=== PATIENT | male | born 1960 | race Caucasian/White ===

== ENCOUNTER 2017-08-09 13:07 | Observation (INO) | payer BC ==
[2017-08-09] MEDS ORDERED: ASPIRIN 81 MG TABLET, CHEWABLE PO ONE (13:57)
--- NOTE | 2017-08-09 13:57 | ER Document Report ---
ED Medical Screen (RME) - General Chief Complaint: Chest Pain Stated Complaint: CHEST PAIN Time Seen by Provider: 08/09/17 13:51 TRAVEL OUTSIDE OF THE [place] IN LAST 30 DAYS: No - HPI Notes: 08/09/17 13:57 Burning intermittent chest pain ongoing for an hour and a half prior to arrival - Related Data Allergies/Adverse Reactions: No Known Allergies Allergy (Verified 08/09/17 13:08) Review of Systems - Review of Systems Cardiovascular: Chest pain Physical Exam - Vital signs Vitals: Temp Pulse Resp BP Pulse Ox 98.9 F 79 20 144/74 H 97 08/09/17 13:16 08/09/17 13:16 08/09/17 13:16 08/09/17 13:16 08/09/17 13:16 - Respiratory Respiratory status: No respiratory distress Chest status: Nontender Breath sounds: Normal Chest palpation: Normal Course - Vital Signs Vital signs: Temp Pulse Resp BP Pulse Ox 98.9 F 79 20 144/74 H 97 08/09/17 13:16 08/09/17 13:16 08/09/17 13:16 08/09/17 13:16 08/09/17 13:16
[2017-08-09] MEDS ORDERED: LIDOCAINE 2% VISCOUS SOLN 20 ML UDCUP PO ONE (13:58)
[2017-08-09] MEDS ORDERED: METOCLOPRAMIDE HCL ORAL SOLN 10 MG/10 ML UDCUP PO ONE (13:58)
[2017-08-09] MEDS ORDERED: MAG HYDROX/AL HYDROX/SIMETH SUSP 30 ML UDCUP PO ONE (13:58)
--- NOTE | 2017-08-09 14:37 | RADIOLOGY REPORT (SQ) ---
EXAM DESCRIPTION: CHEST 2 VIEWS COMPLETED DATE/TIME: 08/09/2017 2:19 pm REASON FOR STUDY: cp COMPARISON: None. EXAM PARAMETERS: NUMBER OF VIEWS: two views TECHNIQUE: Digital Frontal and Lateral radiographic views of the chest acquired. RADIATION DOSE: NA LIMITATIONS: none FINDINGS: LUNGS AND PLEURA: No opacities, masses or pneumothorax. No pleural effusion. MEDIASTINUM AND HILAR STRUCTURES: No masses or contour abnormalities. HEART AND VASCULAR STRUCTURES: Heart normal size. No evidence for failure. BONES: No acute findings. HARDWARE: None in the chest. OTHER: No other significant finding. IMPRESSION: NO ACUTE RADIOGRAPHIC FINDING IN THE CHEST. TECHNICAL DOCUMENTATION: JOB ID: [id number] [employer]- All Rights Reserved Reading location - IP/workstation name: [email or web address]
[2017-08-09 14:41] LABS: ABSOLUTE EOSINOPHILS # (AUTO) 0.2 10^3/uL (0.0-0.6); ABSOLUTE LYMPHOCYTES (AUTO) 2.4 10^3/uL (0.5-4.7); ABSOLUTE MONOCYTES (AUTO) 0.5 10^3/uL (0.1-1.4); ABSOLUTE NEUT (AUTO) 4.6 10^3/uL (1.7-8.2); BASOPHILS % (AUTO) 0.5 % (0-2); HEMATOCRIT 41.7 % (37.9-51.0); HEMOGLOBIN 14.9 g/dL (13.5-17.0); MEAN CORPUSCULAR HEMOGLOBIN 33.5 pg (27.0-33.4); MEAN CORPUSCULAR HGB CONC 35.6 g/dL (32.0-36.0); MEAN CORPUSCULAR VOLUME 94 fl (80-97); MONOCYTES % (AUTO) 6.8 % (3-13); PLATELET COUNT 153 10^3/uL (150-450); RED BLOOD COUNT 4.44 10^6/uL (4.35-5.55); RED CELL DISTRIBUTION WIDTH 12.4 % (11.5-14.0); SEGMENTED NEUTROPHILS % (AUTO) 59.7 % (42-78); TOTAL CELLS COUNTED % (AUTO) 100 %; WHITE BLOOD COUNT 7.7 10^3/uL (4.0-10.5)
--- NOTE | 2017-08-09 14:50 | EKG REPORT ---
SEVERITY:- BORDERLINE ECG - SINUS RHYTHM BORDERLINE INFERIOR Q WAVES : Confirmed by: Milton Luna MD 09-Aug-2017 14:50:21
[2017-08-09 14:58] LABS: ALANINE AMINOTRANSFERASE 58 U/L (21-72); ALBUMIN 5.2 g/dL (3.5-5.0); ALKALINE PHOSPHATASE 57 U/L (38-126); ANION GAP 15 (5-19); ASPARTATE AMINO TRANSFERASE 52 U/L (17-59); BILIRUBIN,DIRECT 0.3 mg/dL (0.0-0.4); BILIRUBIN,TOTAL 0.7 mg/dL (0.2-1.3); BLOOD UREA NITROGEN 18 mg/dL (7-20); CALCIUM 10.7 mg/dL (8.4-10.2); CARBON DIOXIDE 28 mmol/L (22-30); CHLORIDE 98 mmol/L (98-107); CREATINE KINASE 65 U/L (55-170); GLUCOSE 176 mg/dL (75-110); POTASSIUM 4.6 mmol/L (3.6-5.0); SODIUM 141.4 mmol/L (137-145); TOTAL PROTEIN 7.9 g/dL (6.3-8.2)
[2017-08-09 15:10] LABS: CREATINE KINASE MB 1.24 ng/mL (<4.55)
[2017-08-09 15:13] LABS: TROPONIN I < 0.012 ng/mL
--- NOTE | 2017-08-09 15:41 | ER Document Report ---
ED Cardiac - General Chief Complaint: Chest Pain Stated Complaint: CHEST PAIN Time Seen by Provider: 08/09/17 13:51 Mode of Arrival: Ambulatory Information source: Patient TRAVEL OUTSIDE OF THE [place] IN LAST 30 DAYS: No - HPI Patient complains to provider of: Chest pain Use of: denies: Alcohol, Amphetamines, Bath salts, Caffeine, Cocaine, Decongestants Was the onset of pain: Sudden When did pain begin: 1130 TODAY Is the pain a: New problem Chest pain location: Substernal Quality of pain: Burning, Sharp Chest pain radiation location: None Severity now: None Severity at worst: Mild Chest pain precipitating factors: Mental Exertion/Stress Cardiac risk factors: Diabetes, Hypertension, Dyslipidemia. denies: Smoker, + Family history Positive cardiac history: No Associated symptoms: Shortness of breath, Weakness. denies: Diaphoresis Exacerbated by: Emotional stress Relieved by: Rest Similar symptoms previously: Yes - ONCE, NOT RECENT Recently seen / treated by doctor: No - Related Data Allergies/Adverse Reactions: No Known Allergies Allergy (Verified 08/09/17 13:08) Past Medical History - General Information source: Patient - Social History Smoking Status: Former Smoker - SMALL AMT., MANY YRS AGO Cigarette use (# per day): No Chew tobacco use (# tins/day): No Frequency of alcohol use: Social Drug Abuse: None Lives with: Spouse/Significant other Family History: denies: CAD Patient has suicidal ideation: No Patient has homicidal ideation: No - Past Medical History Cardiac Medical History: Reports: Hx Hypercholesterolemia, Hx Hypertension Renal/ Medical History: Reports: Hx Kidney Stones, Hx Peritoneal Dialysis Past Surgical History: Reports: Hx Urinary Tract Surgery - STONE RETRIEVAL Review of Systems - Review of Systems Constitutional: Weakness - VAGUE FEELING OF FATIGUE EENT: No symptoms reported Cardiovascular: See HPI Respiratory: Short of breath - MINIMAL Gastrointestinal: No symptoms reported. denies: Nausea Male Genitourinary: No symptoms reported Musculoskeletal: No symptoms reported Skin: No symptoms reported Neurological/Psychological: No symptoms reported Physical Exam - Vital signs Vitals: Temp Pulse Resp BP Pulse Ox 98.9 F 79 20 144/74 H 97 08/09/17 13:16 08/09/17 13:16 08/09/17 13:16 08/09/17 13:16 08/09/17 13:16 Course - Vital Signs Vital signs: Temp Pulse Resp BP Pulse Ox 98.9 F 79 20 144/74 H 97 08/09/17 13:16 08/09/17 13:16 08/09/17 13:16 08/09/17 13:16 08/09/17 13:16 - Laboratory Result Diagrams: 08/09/17 14:26 08/09/17 14:26 Laboratory results interpreted by me: 08/09/17 08/09/17 14:26 14:26 MCH 33.5 H Glucose 176 H Calcium 10.7 H Albumin 5.2 H - Diagnostic Test Radiology reviewed: Image reviewed, Reports reviewed - EKG Interpretation by Me EKG shows normal: Sinus rhythm, [place], Intervals, QRS Complexes. abnormal: ST-T Waves - INF. T ABNLS, NS Rate: Normal Rhythm: NSR - Consults [facility] Time consulted: 15:40 Consulted provider: will come to ER Discharge - Discharge Clinical Impression: Chest pain Qualifiers: Chest pain type: unspecified Qualified Code(s): R07.9 - Chest pain, unspecified Condition: Good Disposition: ADMITTED OBSERVATION Admitting Provider: Hospitalist Unit Admitted: Telemetry Referrals: JANUSZ SCHWARTZ PA-C [Primary Care Provider] - Follow up as needed
[2017-08-09] MEDS ORDERED: ONDANSETRON HCL INJ/PF 4 MG/2 ML SDV IV PRN (16:09)
[2017-08-09] MEDS ORDERED: DIAZEPAM 5 MG TABLET PO PRN (16:09)
[2017-08-09] MEDS ORDERED: MAG HYDROX/AL HYDROX/SIMETH SUSP 30 ML UDCUP PO PRN (16:09)
[2017-08-09] MEDS ORDERED: NITROGLYCERIN 0.4 MG/TAB 25 TAB/BOTTLE SL PRN (16:09)
[2017-08-09] MEDS ORDERED: ATORVASTATIN CALCIUM 20 MG TABLET PO SCH (16:15)
[2017-08-09] MEDS ORDERED: HYDRALAZINE HCL INJ/PF 20 MG/1 ML SDV IV PRN (16:22)
--- NOTE | 2017-08-09 16:25 | PDOC H&P ---
History of Present Illness Admission Date/PCP: 08/09/17 16:02 JANUSZ SCHWARTZ PA-C Patient complains of: Chest pain History of Present Illness: DIANA NASCIMENTO is a 57 year old male with a past medical history significant for hypertension, hyperlipidemia, diabetes mellitus type 2 who presented to the emergency department with a complaint of chest pain that occurred 3 times today. He describes the pain as indigestion or burning sensation that is associated with dizziness. He denies associated dyspnea, abdominal pain, nausea or vomiting. He states that the pain seemed to radiate to his left shoulder, however he states this was a vague sensation and he cannot quantify it as pain versus anxiety. He states that the longest episode lasted approximately 30 minutes and resolved spontaneously. He denies being aware of any exacerbating or relieving factors. Evaluation in the emergency department reveals an EKG with borderline Q waves but no ST segment elevation or depression. Chest x-ray is normal. Laboratory evaluation is essentially normal. Please refer to the hospitalist service for observational admission and chest pain rule out. Past Medical History Cardiac Medical History: Reports: Hyperlipidema, Hypertension Denies: Congestive Heart Failure, Coronary Artery Disease, Myocardial Infarction Pulmonary Medical History: Reports: None EENT Medical History: Reports: None Neurological Medical History: Reports: None Endocrine Medical History: Reports: Diabetes Mellitus Type 2 Renal/ Medical History: Reports: None Malignancy Medical History: Reports: None GI Medical History: Reports: None Musculoskeltal Medical History: Reports: None Skin Medical History: Reports: None Psychiatric Medical History: Reports: Alcohol Dependency, Tobacco Dependency Traumatic Medical History: Reports: None Hematology: Reports: None Infectious Medical History: Reports: None Past Surgical History Past Surgical History: Reports: Other - Kidney stone Social History Information Source: Patient Lives with: Spouse/Significant other Smoking Status: Former Smoker - SMALL AMT., MANY YRS AGO Frequency of Alcohol Use: Heavy Amount of Alcoholic Beverages Per Day: 3 whisky drinks nightly Last Alcohol Use: 08/08/17 Drugs: None - Evaluation in the emergency department reveals an EKG with borderline Q waves but no ST segment elevation or depression. Chest x-ray is normal. Essentially normal. Hx Prescription Drug Abuse: No - Advance Directive Resuscitation Status: Full Code Surrogate healthcare decision maker:: The patient's , Shamar Nascimento, Family History Family History: denies: CAD, DM Parental Family History Reviewed: Yes Children Family History Reviewed: Yes Sibling(s) Family History Reviewed.: Yes Medication/Allergy Allergies/Adverse Reactions: No Known Allergies Allergy (Verified 08/09/17 13:08) Review of Systems Constitutional: ABSENT: chills, fever(s), headache(s), weight gain, weight loss Eyes: ABSENT: visual disturbances Ears: ABSENT: hearing changes Cardiovascular: PRESENT: as per HPI, chest pain. ABSENT: dyspnea on exertion, edema, orthropnea, palpitations Respiratory: ABSENT: cough, hemoptysis Gastrointestinal: ABSENT: abdominal pain, constipation, diarrhea, hematemesis, hematochezia, nausea, vomiting Genitourinary: ABSENT: dysuria, hematuria Musculoskeletal: ABSENT: joint swelling Integumentary: ABSENT: rash, wounds Neurological: ABSENT: abnormal gait, abnormal speech, confusion, dizziness, focal weakness, syncope Psychiatric: ABSENT: anxiety, depression, homidical ideation, suicidal ideation Endocrine: ABSENT: cold intolerance, heat intolerance, polydipsia, polyuria Hematologic/Lymphatic: ABSENT: easy bleeding, easy bruising Physical Exam Vital Signs: Temp Pulse Resp BP Pulse Ox 98.9 F 79 18 124/70 99 08/09/17 13:16 08/09/17 13:16 08/09/17 15:01 08/09/17 15:01 08/09/17 15:01 General appearance: PRESENT: no acute distress, well-developed, well-nourished, other - Overweight Head exam: PRESENT: atraumatic, normocephalic Eye exam: PRESENT: conjunctiva pink, EOMI, PERRLA. ABSENT: scleral icterus Ear exam: PRESENT: normal external ear exam Mouth exam: PRESENT: moist, tongue midline Neck exam: ABSENT: carotid bruit, JVD, lymphadenopathy, thyromegaly Respiratory exam: PRESENT: clear to auscultation theodora, symmetrical, unlabored. ABSENT: rales, rhonchi, wheezes Cardiovascular exam: PRESENT: RRR, +S1, +S2. ABSENT: diastolic murmur, rubs, systolic murmur Pulses: PRESENT: normal dorsalis pedis pul Vascular exam: PRESENT: normal capillary refill GI/Abdominal exam: PRESENT: normal bowel sounds, soft. ABSENT: distended, guarding, mass, organolmegaly, rebound, tenderness Rectal exam: PRESENT: deferred Extremities exam: PRESENT: full ROM. ABSENT: calf tenderness, clubbing, pedal edema Neurological exam: PRESENT: alert, awake, oriented to person, oriented to place , oriented to time, oriented to situation, CN II-XII grossly intact. ABSENT: motor sensory deficit Psychiatric exam: PRESENT: appropriate affect, normal mood. ABSENT: homicidal ideation, suicidal ideation Skin exam: PRESENT: dry, intact, warm. ABSENT: cyanosis, rash Results Impressions: Chest X-Ray 08/09/17 13:57 IMPRESSION: NO ACUTE RADIOGRAPHIC FINDING IN THE CHEST. Assessment & Plan - Diagnosis (1) Chest pain Qualifiers: Chest pain type: unspecified Qualified Code(s): R07.9 - Chest pain, unspecified Is this a current diagnosis for this admission?: Yes Plan: The patient is admitted with atypical chest pain symptoms, however, the patient does have multiple risk factors including gender, age, hypertension, hyperlipidemia, diabetes mellitus, and previous tobacco dependence. EKG demonstrates normal sinus rhythm with borderline Q waves; no evidence of ST segment elevation or depression. Initial cardiac enzymes are reassuring. The patient will be admitted to the medical floor on continuous cardiac telemetry. Supplemental oxygen as needed to maintain oxygen saturations greater than 90% Nitroglycerin sublingual tabs every 5 minutes 3 for chest pain. We will trend troponins. We will obtain echocardiogram. Will obtain cardiac stress testing. We will further stratify risk with by assessing lipid panel. (2) Hypertension Is this a current diagnosis for this admission?: Yes Plan: Resume the patient's home medications; lisinopril, once reconciled. IV hydralazine is available as needed for blood pressure control. (3) Hyperlipidemia Is this a current diagnosis for this admission?: Yes Plan: The patient reports that he is on statin therapy; will resume home medications once reconciled. We will provide atorvastatin 20 mg nightly. We will assess lipid panel in the morning. (4) Alcohol dependence Qualifiers: Substance use status: uncomplicated Qualified Code(s): F10.20 - Alcohol dependence, uncomplicated Is this a current diagnosis for this admission?: Yes Plan: The patient reports that he drinks 2-3 whiskey drinks nightly. He denies previous episodes of alcohol withdrawal, however, the patient's reports that she does believe that he went through withdrawal the last time he was admitted to a hospital (at the time he was admitted for 2-3 days for renal stone ). They both deny a history of seizures associated with withdrawal. Last drink was yesterday evening. Valium 2.5 mg p.o. every 4 hours is available as needed for anxiety or withdrawal. Will monitor closely for need of additional benzodiazepines. - Time Time Spent: 50 to 70 Minutes Medications reviewed and adjusted accordingly: Yes Anticipated discharge: Home Within: within 24 hours
[2017-08-09 17:08] LABS: INTERNATIONAL RATION (INR) 0.97; PARTIAL THROMBOPLASTIN TIME 25.7 SEC (23.5-35.8); PROTHROMBIN TIME 13.4 SEC (11.4-15.4)
[2017-08-09] MEDS ORDERED: METFORMIN HCL 500 MG TABLET PO ONE (21:00)
[2017-08-09] MEDS: HEPARIN SOD (PORCINE) 5,000 UNIT/ML 1 ML SYRINGE SUBCUT SCH (22:09)
[2017-08-09] MEDS: FAMOTIDINE 20 MG TABLET PO SCH (22:09)
[2017-08-10 05:45] LABS: HEMATOCRIT 38.8 % (37.9-51.0); HEMOGLOBIN 13.8 g/dL (13.5-17.0); MEAN CORPUSCULAR HEMOGLOBIN 33.6 pg (27.0-33.4); MEAN CORPUSCULAR HGB CONC 35.7 g/dL (32.0-36.0); MEAN CORPUSCULAR VOLUME 94 fl (80-97); PLATELET COUNT 147 10^3/uL (150-450); RED BLOOD COUNT 4.12 10^6/uL (4.35-5.55); RED CELL DISTRIBUTION WIDTH 12.6 % (11.5-14.0); WHITE BLOOD COUNT 7.6 10^3/uL (4.0-10.5)
[2017-08-10 05:55] LABS: ANION GAP 13 (5-19); BLOOD UREA NITROGEN 18 mg/dL (7-20); CALCIUM 9.6 mg/dL (8.4-10.2); CARBON DIOXIDE 28 mmol/L (22-30); CHLORIDE 101 mmol/L (98-107); CHOLESTEROL 123.94 mg/dL (0-200); GLUCOSE 146 mg/dL (75-110); POTASSIUM 4.5 mmol/L (3.6-5.0); SODIUM 141.6 mmol/L (137-145); TRIGLYCERIDES 271 mg/dL (<150)
[2017-08-10] MEDS: HEPARIN SOD (PORCINE) 5,000 UNIT/ML 1 ML SYRINGE SUBCUT SCH ×2 (06:04→15:30)
[2017-08-10 06:05] LABS: DIRECT LDL 52 mg/dL (<100)
[2017-08-10 06:07] LABS: VLDL CHOLESTEROL 54.2 mg/dL (10-31)
[2017-08-10] MEDS ORDERED: DOCUSATE SODIUM 100 MG CAPSULE PO SCH (10:00)
[2017-08-10] MEDS ORDERED: ASPIRIN 81 MG TABLET, ENT COATED PO SCH (10:00)
[2017-08-10] MEDS: FAMOTIDINE 20 MG TABLET PO SCH (10:11)
[2017-08-10 15:19] VITALS: BP 121/66
[2017-08-10] MEDS ORDERED: METFORMIN HCL 500 MG TABLET PO SCH (17:00)
[2017-08-11] MEDS ORDERED: HYDROCHLOROTHIAZIDE 25 MG TABLET PO SCH (10:00)
[2017-08-11] MEDS ORDERED: LISINOPRIL 10 MG TABLET PO SCH (10:00)
--- NOTE | 2017-08-11 19:41 | PDOC DISCHARGE SUMMARY ---
General - Admit/Disc Date/PCP Admission Date/Primary Care Provider: 08/09/17 16:02 JANUSZ SCHWARTZ PA-C Discharge Date: 08/10/17 - Discharge Diagnosis (1) Chest pain Is this a current diagnosis for this admission?: Yes Summary: The patient is admitted with atypical chest pain symptoms, however, the patient does have multiple risk factors including gender, age, hypertension, hyperlipidemia, diabetes mellitus, and previous tobacco dependence. EKG demonstrates normal sinus rhythm with borderline Q waves; no evidence of ST segment elevation or depression. Serial troponins were negative x 4. Echocardiogram was obtained; at time of this documentation, finalized report is not yet available. The patient was taken to the non-invasive cardiac lab for Nuclear Stress Testing. However, upon arrival to the procedure room, the patient stated that he was too claustrophobic and had too much anxiety to complete the test. He was offered the opportunity to reattempt the exam the following morning with IV ativan for anxiety management. The patient declined and stated that he would follow up with his primary care provider to arrange testing. The patient further declined to stay until the echocardiogram report became available. At time of discharge, the patient is in stable condition. He has had no further episodes of chest pain. He is maintaining oxygen saturations on room air. He is advised to continue daily aspirin 81 mg and statin therapy. He is strongly encouraged to reduce his daily alcohol intake. He is instructed to follow up with his primary care provider within 1 week and to return to the Emergency Department for any future episodes of chest pain. (2) Hypertension Is this a current diagnosis for this admission?: Yes (3) Hyperlipidemia Is this a current diagnosis for this admission?: Yes (4) Alcohol dependence Is this a current diagnosis for this admission?: Yes - Additional Information Resuscitation Status: Full Code Discharge Diet: Cardiac Discharge Activity: Activity As Tolerated, Balance Activity w/Rest Home Medications: Atorvastatin Calcium [Lipitor 20 mg Tablet] 20 mg PO DAILY 08/09/17 Hydrochlorothiazide [Hydrodiuril 25 mg Tablet] 25 mg PO DAILY 08/09/17 Lisinopril [Prinivil 40 mg Tablet] 40 mg PO DAILY 08/09/17 Metformin HCl [Metformin HCl ER] 1,500 mg PO WSUPPER 08/09/17 Aspirin [Ecotrin 81 mg EC Tablet] 81 mg PO DAILY tabec 08/10/17 Metformin HCl [Glucophage 500 mg Tablet] 1,500 mg PO WSUPPER tablet 08/10/17 History of Present Illness History of Present Illness: DIANA NASCIMENTO is a 57 year old male with a past medical history significant for hypertension, hyperlipidemia, diabetes mellitus type 2 who presented to the emergency department with a complaint of chest pain that occurred 3 times today. He describes the pain as indigestion or burning sensation that is associated with dizziness. He denies associated dyspnea, abdominal pain, nausea or vomiting. He states that the pain seemed to radiate to his left shoulder, however he states this was a vague sensation and he cannot quantify it as pain versus anxiety. He states that the longest episode lasted approximately 30 minutes and resolved spontaneously. He denies being aware of any exacerbating or relieving factors. Evaluation in the emergency department reveals an EKG with borderline Q waves but no ST segment elevation or depression. Chest x-ray is normal. Laboratory evaluation is essentially normal. Please refer to the hospitalist service for observational admission and chest pain rule out. Physical Exam Vital Signs: Temp Pulse Resp BP Pulse Ox 98.1 F 73 12 121/66 99 08/10/17 16:32 08/10/17 16:32 08/10/17 16:32 08/10/17 16:32 08/10/17 16:32 Intake & Output 08/10/17 08/11/17 08/12/17 06:59 06:59 06:59 Intake Total 180 Balance 180 Weight 102 kg General appearance: PRESENT: no acute distress, well-developed, well-nourished, other - Overweight Head exam: PRESENT: atraumatic, normocephalic Eye exam: PRESENT: conjunctiva pink, EOMI, PERRLA. ABSENT: scleral icterus Ear exam: PRESENT: normal external ear exam Mouth exam: PRESENT: moist, tongue midline Neck exam: ABSENT: carotid bruit, JVD, lymphadenopathy, thyromegaly Respiratory exam: PRESENT: clear to auscultation theodora, symmetrical, unlabored. ABSENT: rales, rhonchi, wheezes Cardiovascular exam: PRESENT: RRR, +S1, +S2. ABSENT: diastolic murmur, rubs, systolic murmur Pulses: PRESENT: normal dorsalis pedis pul Vascular exam: PRESENT: normal capillary refill GI/Abdominal exam: PRESENT: normal bowel sounds, soft. ABSENT: distended, guarding, mass, organolmegaly, rebound, tenderness Rectal exam: PRESENT: deferred Extremities exam: PRESENT: full ROM. ABSENT: calf tenderness, clubbing, pedal edema Neurological exam: PRESENT: alert, awake, oriented to person, oriented to place , oriented to time, oriented to situation, CN II-XII grossly intact. ABSENT: motor sensory deficit Psychiatric exam: PRESENT: appropriate affect, normal mood. ABSENT: homicidal ideation, suicidal ideation Skin exam: PRESENT: dry, intact, warm. ABSENT: cyanosis, rash Results Laboratory Results: 08/10/17 04:39 08/10/17 04:39 08/09/17 08/09/17 08/10/17 16:46 22:28 04:39 Troponin I < 0.012 < 0.012 < 0.012 Impressions: Chest X-Ray 08/09/17 13:57 IMPRESSION: NO ACUTE RADIOGRAPHIC FINDING IN THE CHEST. Qualifiers - * PATIENT BEING DISCHARGED WITH ANY OF THE FOLLOWING DIAGNOSIS: No Plan Discharge Plan: Discharge to home with self care. To follow up with primary care provider within 1 week; follow up should include completion of cardiac stress testing. Pt declined to stay inpatient until testing was obtained. He is strongly recommended to return to the Emergency Department for reoccurrence of chest pain.
== END 2017-08-10 16:52 | disposition home or self-care (01) ==
LOC: ER 13:07 → EH 16:02 → 5 18:20
PROVIDERS: ADMIT Family Medicine; ATTEND Family Medicine
DX: R07.89 Other chest pain (principal); I10 Essential (primary) hypertension; E78.5 Hyperlipidemia, unspecified; E11.9 Type 2 diabetes mellitus without complications; F40.240 Claustrophobia; F41.9 Anxiety disorder, unspecified; F10.20 Alcohol dependence, uncomplicated; R42 Dizziness and giddiness; R06.02 Shortness of breath; R53.1 Weakness; Z53.29 Procedure and treatment not carried out because of patient's decision for other reasons; Z87.891 Personal history of nicotine dependence; Z79.899 Other long term (current) drug therapy; Z79.82 Long term (current) use of aspirin; Z79.84 Long term (current) use of oral hypoglycemic drugs
CPT/HCPCS: 93005; 99285; 36415 ×2; 82553; 82550; 82565; 85025; 85027; 85610; 85730; 80048; 80053; 84484 ×2; 80061; 93306; 71046; 93010; J1644 ×2; J3490